=== PATIENT | female | born 1960 | race Caucasian/White ===

== ENCOUNTER 2019-12-26 11:48 | Inpatient (IN) ==
[2019-12-26] MEDS ORDERED: Isovue-370 500 ML BOTTLE IVP ONE (12:12)
[2019-12-26 12:28] LABS: Basophils # 0.1 K/mcL (0.0-0.2); Basophils % 0.6 %; Eosinophils # 0.2 K/mcL (0.0-0.6); Eosinophils % 1.9 %; Hematocrit 48.2 % (35.3-44.9); Hemoglobin 15.7 g/dL (11.5-15.4); Immature Granulocytes % 0.4 % (0-4); Lymphocytes % 45.1 %; Mean Corpuscular HGB Conc 32.6 g/dL (31.6-35.5); Mean Corpuscular Hemoglobin 29.9 pg (28.0-33.3); Mean Corpuscular Volume 91.8 fL (83.0-100.0); Mean Platelet Volume 9.9 fL (9.4-12.4); Monocytes # 0.6 K/mcL (0.0-1.3); Monocytes % 7.1 %; Platelet Count 239 K/mcL (140-400); Red Blood Count 5.25 M/mcL (3.82-4.97); Red Cell Distribution Width 13.3 % (11.5-14.5); Segmented Neutrophils % 44.9 %; White Blood Count 8.9 K/mcL (4.3-11.1)
[2019-12-26] MEDS ORDERED: Metoclopramide 10 MG/2 ML VIAL IVP ONE (12:40)
[2019-12-26 12:48] LABS: Alanine Aminotransferase 23 Units/L (7-52); Albumin 3.9 g/dL (3.5-5.7); Alkaline Phosphatase 75 Units/L (34-104); Aspartate Amino Transferase 29 Units/L (13-39); BUN/Creatinine Ratio 14 (6-26); Bilirubin,Direct 0.1 mg/dL (0.0-0.2); Bilirubin,Indirect 0.3 mg/dL (0.0-1.0); Bilirubin,Total 0.4 mg/dL (0.3-1.0); Blood Urea Nitrogen 14 mg/dL (6-20); Calcium 9.2 mg/dL (8.6-10.3); Carbon Dioxide 30 mEq/L (23-29); Chloride 99 mEq/L (98-107); Glucose 110 mg/dL (70-105); Lipase 36 Units/L (11-82); Magnesium 1.8 mg/dL (1.6-2.6); Osmolality,Calculated 285 (280-300); Potassium 3.2 mEq/L (3.5-5.1); Sodium 137 mEq/L (136-145); Total Protein 7.9 g/dL (6.4-8.9); eGFR For African Americans > 60 (> 60); eGFR For Non-African Americans 58 (> 60)
[2019-12-26 13:08] LABS: Bacteria,Urine Few per hpf (None-Few); Bilirubin,Urine Negative (Negative); Blood,Urine Negative (Negative); Clarity,Urine Turbid (Clear); Color,Urine Yellow (Yellow); Glucose,Urine (UA) Normal (Normal); Hyaline Casts,Urine Few per lpf (None Seen); Ketones,Urine Negative (Negative); Leukocyte Esterase,Urine Small (Negative); Mucus,Urine Few per lpf (None-Few); Nitrite,Urine Negative (Negative); Protein,Urine Trace mg/dL (Neg-Trace); Specific Gravity,Urine 1.022 (1.010-1.025); Squamous Epithelial Cell,Urine Moderate per hpf (None-Few)
[2019-12-26] MEDS ORDERED: cefTRIAXone 1,000 MG in Water for inj. (sterile) 10 ML IVP ONE (15:15)
[2019-12-26] MEDS ORDERED: *HR* HYDROcodone/Acet 5/325 mg TABLET PO PRN (16:16)
[2019-12-26] MEDS ORDERED: Naloxone 0.4 MG/ML INJ IVP PRN (16:16)
[2019-12-26] MEDS ORDERED: Ondansetron 4 MG/2 ML VIAL IVP PRN (16:16)
[2019-12-26] MEDS ORDERED: *HR* OxyCODONE/APAP 10/325 TABLET PO PRN (16:46)
[2019-12-26] MEDS: lamoTRIgine 100 MG TABLET PO SCH (20:39)
[2019-12-26] MEDS: risperiDONE 0.25 MG TABLET PO SCH (20:39)
[2019-12-26] MEDS ORDERED: LACTOSE REDUCED FOOD PO SCH (21:00)
[2019-12-27 01:13] LABS: Basophils % 0.2 %; Eosinophils # 0.1 K/mcL (0.0-0.6); Eosinophils % 1.6 %; Hematocrit 44.1 % (35.3-44.9); Hemoglobin 14.3 g/dL (11.5-15.4); Immature Granulocytes % 0.2 % (0-4); Lymphocytes # 3.6 K/mcL (0.6-4.6); Lymphocytes % 42.5 %; Mean Corpuscular HGB Conc 32.4 g/dL (31.6-35.5); Mean Corpuscular Hemoglobin 29.5 pg (28.0-33.3); Mean Corpuscular Volume 91.1 fL (83.0-100.0); Monocytes # 0.5 K/mcL (0.0-1.3); Neutrophils # 4.2 K/mcL (1.6-8.9); Platelet Count 223 K/mcL (140-400); Red Blood Count 4.84 M/mcL (3.82-4.97); Red Cell Distribution Width 13.3 % (11.5-14.5); Segmented Neutrophils % 49.5 %; White Blood Count 8.6 K/mcL (4.3-11.1)
[2019-12-27 01:18] LABS: Prothrombin Time 11.7 Seconds (9.4-12.1)
[2019-12-27 01:21] LABS: Activated Partial Thrombo Time 33.6 Seconds (26.0-36.0)
[2019-12-27 01:32] LABS: Calcium 8.8 mg/dL (8.6-10.3); Magnesium 1.9 mg/dL (1.6-2.6); Phosphorous 2.7 mg/dL (2.7-4.5); Potassium 3.3 mEq/L (3.5-5.1)
[2019-12-27] MEDS: cefTRIAXone 1,000 MG in Water for inj. (sterile) 10 ML IVP SCH (07:56)
[2019-12-27] MEDS: lamoTRIgine 100 MG TABLET PO SCH ×2 (07:56→20:21)
[2019-12-27] MEDS: Folic Acid 1 MG TABLET PO SCH (07:56)
[2019-12-27] MEDS: *HR* Heparin 5,000 UNIT/ML VIAL SQ SCH (17:58)
[2019-12-27] MEDS: risperiDONE 0.25 MG TABLET PO SCH (20:21)
[2019-12-28] MEDS: *HR* Heparin 5,000 UNIT/ML VIAL SQ SCH (05:31)
[2019-12-28 07:02] VITALS: BP 121/87
[2019-12-28 08:57] LABS: Hematocrit 42.5 % (35.3-44.9); Hemoglobin 14.3 g/dL (11.5-15.4); Mean Corpuscular HGB Conc 33.6 g/dL (31.6-35.5); Mean Corpuscular Hemoglobin 30.8 pg (28.0-33.3); Mean Corpuscular Volume 91.4 fL (83.0-100.0); Mean Platelet Volume 10.1 fL (9.4-12.4); Platelet Count 188 K/mcL (140-400); Red Blood Count 4.65 M/mcL (3.82-4.97); Red Cell Distribution Width 13.6 % (11.5-14.5); White Blood Count 6.2 K/mcL (4.3-11.1)
[2019-12-28 09:04] LABS: BUN/Creatinine Ratio 23 (6-26); Blood Urea Nitrogen 20 mg/dL (6-20); Calcium 8.8 mg/dL (8.6-10.3); Carbon Dioxide 28 mEq/L (23-29); Chloride 105 mEq/L (98-107); Glucose 111 mg/dL (70-105); Osmolality,Calculated 289 (280-300); Potassium 3.4 mEq/L (3.5-5.1); Sodium 138 mEq/L (136-145); eGFR For African Americans > 60 (> 60); eGFR For Non-African Americans > 60 (> 60)
[2019-12-28] MEDS: lamoTRIgine 100 MG TABLET PO SCH (09:07)
[2019-12-28] MEDS: Folic Acid 1 MG TABLET PO SCH (09:07)
[2019-12-28] MEDS: cefTRIAXone 1,000 MG in Water for inj. (sterile) 10 ML IVP SCH (09:07)
== END 2019-12-28 12:23 | disposition home or self-care (01) | DRG 689 ==
LOC: EMEROOARM 11:48 → 3BNU 11:48 → SUATTDRO 12-27 12:34
PROVIDERS: ADMIT Internal Medicine; ATTEND Family Medicine